=== PATIENT | male | born 1960 | race Caucasian/White ===

== ENCOUNTER → 2020-10-17 | Day surgery (SDC) | payer OTHER ==
[~2020-10-17] MED LIST: BUPROPION XL150 MG PO; HYOSCYAMINE SULFATE 0.5 MG/ML INJ ONE; LEVOCETIRIZINE D5 MG PO; LIDOCAINE HCL 2% LOCAL INJ 5 ML SDV VIAL INJ ONE; LIPITOR20 MG PO; PANTOPRAZOLE SO40 MG PO; PROPOFOL IV EMULSION 10 MG/ML 20 ML VIAL ONE; TUSSIN DM COUG118 ML PO
[2020-10-17 16:55] VITALS: BP 133/92
== END | disposition home or self-care (01) ==
LOC: OR 11:36
PROVIDERS: ATTEND Internal Medicine Gastroenterology
DX: K21.9 Gastro-esophageal reflux disease without esophagitis (principal); K20.90 Esophagitis, unspecified without bleeding; K44.9 Diaphragmatic hernia without obstruction or gangrene; K29.70 Gastritis, unspecified, without bleeding; K31.7 Polyp of stomach and duodenum; K57.30 Diverticulosis of large intestine without perforation or abscess without bleeding; K64.8 Other hemorrhoids; D12.2 Benign neoplasm of ascending colon; D12.5 Benign neoplasm of sigmoid colon; D12.3 Benign neoplasm of transverse colon; F32.9 Major depressive disorder, single episode, unspecified; Z01.810 Encounter for preprocedural cardiovascular examination; Z86.010 Personal history of colon polyps; Z01.812 Encounter for preprocedural laboratory examination; Z20.822 Contact with and (suspected) exposure to COVID-19
CPT/HCPCS: 43239; 45380; 45385; 93005; U0002; J1980; J2001

== ENCOUNTER 2021-02-07 19:22 | Emergency (ER) | payer OTHER ==
[~2021-02-07] VITALS: Ht 177.8 cm; Wt 86.2 kg
[~2021-02-07 19:22] MED LIST changes: -HYOSCYAMINE SULFATE 0.5 MG/ML INJ ONE; -LIDOCAINE HCL 2% LOCAL INJ 5 ML SDV VIAL INJ ONE; -PROPOFOL IV EMULSION 10 MG/ML 20 ML VIAL ONE
[2021-02-07] MEDS ORDERED: PREDNISONE 20 MG TAB PO STA (19:53)
[2021-02-07] MEDS ORDERED: FAMOTIDINE 20 MG TAB PO STA (19:53)
[2021-02-07] MEDS ORDERED: PEPCID20 MG PO (20:52)
[2021-02-07] MEDS ORDERED: PREDNISONE20 MG PO (20:52)
== END 2021-02-07 21:15 | disposition home or self-care (01) ==
LOC: FSED 20:00
DX: R07.89 Other chest pain (principal); R10.13 Epigastric pain; H57.13 Ocular pain, bilateral; Z77.098 Contact with and (suspected) exposure to other hazardous, chiefly nonmedicinal, chemicals
CPT/HCPCS: 71046; 93005; 99283

== ENCOUNTER 2021-06-11 14:47 | Emergency (ER) | payer OTHER ==
[~2021-06-11] VITALS: Ht 177.8 cm; Wt 85.7 kg
[~2021-06-11 14:47] MED LIST changes: +PEPCID20 MG PO; +PREDNISONE20 MG PO
[2021-06-11] MEDS ORDERED: FLUOCINONIDE15 GM TOP (16:37)
[2021-06-11] MEDS ORDERED: NAPROSYN500 MG PO (16:37)
== END 2021-06-11 16:51 | disposition home or self-care (01) ==
LOC: FSED 15:22
DX: R10.31 Right lower quadrant pain (principal)
CPT/HCPCS: 74176; 80053; 81003; 85025; 99284